=== PATIENT | female | born 2000 | race Two or more races ===

== ENCOUNTER 2021-10-18 06:54 | Emergency (ER) | payer OTHER, SELFPAY ==
[~2021-10-18] VITALS: Ht 170.2 cm; Wt 69.1 kg
[2021-10-18] MEDS ORDERED: ACETAMINOPHEN 500 MG TAB PO ONE (07:30)
[2021-10-18 08:41] VITALS: BP 139/82
== END 2021-10-18 09:06 | disposition home or self-care (01) ==
LOC: M ED 06:54
DX: S00.83XA Contusion of other part of head, initial encounter (principal); Y04.8XXA Assault by other bodily force, initial encounter; Y92.9 Unspecified place or not applicable; Y93.9 Activity, unspecified; Y99.9 Unspecified external cause status

== ENCOUNTER 2022-02-15 13:39 | Emergency (ER) | payer BC, OTHER ==
[~2022-02-15] VITALS: Ht 170.2 cm; Wt 70.0 kg
[2022-02-15 13:41] VITALS: BP 110/59
[2022-02-15] MEDS ORDERED: ACET500T15 PO (14:07)
[2022-02-15 15:39] LABS: HEMATOCRIT 41.3 % (36.0-47.0); MEAN CORPUSCULAR HEMOGLOBIN 30.1 pg (27.0-33.0); MEAN CORPUSCULAR HGB CONC 33.9 g/dl (32.0-36.5); MEAN CORPUSCULAR VOLUME 88.8 fl (80.0-96.0); PLATELET COUNT, AUTOMATED 201 10^3/uL (150-450); RED BLOOD COUNT 4.65 10^6/uL (4.00-5.40); WHITE BLOOD COUNT 17.7 10^3/uL (4.0-10.0)
[2022-02-15 15:53] LABS: BLOOD UREA NITROGEN 12 MG/DL (7-18); CALCIUM LEVEL 9.9 MG/DL (8.5-10.1); CARBON DIOXIDE LEVEL 25 MEQ/L (21-32); CHLORIDE LEVEL 103 MEQ/L (98-107); CREATININE FOR GFR 0.84 MG/DL (0.55-1.30); GLOMERULAR FILTRATION RATE > 60.0 (>60); GLUCOSE, FASTING 91 MG/DL (70-100); POTASSIUM SERUM 3.3 MEQ/L (3.5-5.1); SODIUM LEVEL 136 MEQ/L (136-145)
[2022-02-15 15:57] LABS: HCG, SERUM QUALITATIVE NEGATIVE (NEGATIVE)
[2022-02-15 16:19] LABS: ALBUMIN 4.1 GM/DL (3.2-5.2); ALT/SGPT 22 U/L (12-78); BILIRUBIN,DIRECT 0.2 MG/DL (0.0-0.2); BILIRUBIN,TOTAL 0.6 MG/DL (0.2-1.0); LIPASE 60 U/L (73-393); TOTAL PROTEIN 7.9 GM/DL (6.4-8.2)
[2022-02-15] MEDS ORDERED: NS 1,000 ML IV ONE (16:45)
[2022-02-15] MEDS ORDERED: cefTRIAXone SOD 1 GM in D5W MINI-BAG PLUS 50 ML IV ONE (16:45)
[2022-02-15 17:35] LABS: ERYTHROCYTE SEDIMENTATION RATE 21 mm/hr (0-20)
[2022-02-15] MEDS ORDERED: BACT800T5 PO (18:36)
== END 2022-02-15 19:17 | disposition home or self-care (01) ==
LOC: M ED 13:39
DX: N61.0 Mastitis without abscess (principal)
CPT/HCPCS: 76642; 80048; 80076; 83605; 83690; 84703; 85027; 85652; 86140; 87040; 96365; 99283; J0696